=== PATIENT | female | born 1950 | race Caucasian/White ===

== ENCOUNTER 2017-07-02 18:28 | Emergency (ER) | payer OTHER ==
[~2017-07-02] VITALS: Ht 160 cm; Wt 67.3 kg
[2017-07-02] MEDS ORDERED: CHOL2000 PO (18:56)
[2017-07-02] MEDS ORDERED: RHINOCORT (18:56)
[2017-07-02] MEDS ORDERED: LISI-167 PO (18:56)
[2017-07-02] MEDS ORDERED: EXENATIDE 10 MCG (18:56)
[2017-07-02] MEDS ORDERED: ALBUTEROL INHALER (18:56)
[2017-07-02] MEDS ORDERED: CALCIUM (18:56)
[2017-07-02] MEDS ORDERED: SIMV40TA3 PO (18:56)
[2017-07-02] MEDS ORDERED: LORA1TAB46 PO (18:56)
[2017-07-02] MEDS ORDERED: METF750T PO (18:56)
[2017-07-02] MEDS ORDERED: ASPI-515 PO (18:56)
[2017-07-02 19:05] LABS: BASOPHILS # (AUTO) 0.03 x10^3/uL (0-0.1); BASOPHILS % (AUTO) 0 % (0-1); EOSINOPHILS # (AUTO) 0.11 x10^3/uL (0-0.4); EOSINOPHILS % (AUTO) 1 % (1-7); HCT (SEDRATE) 43.8 % (34.6-47.8); LYMPHOCYTES # (AUTO) 1.87 x10^3/uL (1-3.4); LYMPHOCYTES % (AUTO) 22 % (22-44); MD NO; MEAN CORPUSCULAR HEMOGLOBIN 31.1 pg (27.0-34.8); MEAN CORPUSCULAR HGB CONC 34.1 g/dL (32.4-35.8); MEAN CORPUSCULAR VOLUME 91.2 fL (80-100); MEAN PLATELET VOLUME 9.8 fL (7.4-10.4); MONOCYTES # (AUTO) 0.67 x10^3/uL (0.2-0.8); MONOCYTES % (AUTO) 8 % (2-9); NEUTROPHILS # (AUTO) 5.71 x10^3/uL (1.8-6.8); NEUTROPHILS % (AUTO) 68 % (42-75); PLATELET COUNT 237 x10^3/uL (130-400); RED CELL DISTRIBUTION WIDTH 13.5 % (9.6-15.2)
[2017-07-02 19:12] LABS: ALBUMIN 3.8 g/dL (3.4-5.0); ANION GAP 9 mmol/L (5-15); CHLORIDE 102 mmol/L (98-107); CREATININE 0.97 mg/dL (0.55-1.02)
[2017-07-02] MEDS ORDERED: DIPHENHYDRAMINE 50 MG/ML, 1ML ONE (19:15)
[2017-07-02] MEDS ORDERED: FAMOTIDINE 20 MG TABLET ONE (19:15)
[2017-07-02] MEDS ORDERED: DIPHENHYDRAMINE 50 MG/ML, 1ML IM ONE (19:30)
[2017-07-02] MEDS ORDERED: FAMOTIDINE 20 MG TABLET PO ONE (19:30)
[2017-07-02 19:44] LABS: SEDIMENTATION RATE 47 mm/hr (0-20)
[2017-07-02 20:35] VITALS: BP 135/68
== END 2017-07-02 21:01 | disposition home or self-care (01) ==
LOC: ED 20:15
DX: L03.113 Cellulitis of right upper limb (principal); L50.9 Urticaria, unspecified; L50.8 Other urticaria; E11.9 Type 2 diabetes mellitus without complications; E78.00 Pure hypercholesterolemia, unspecified; I10 Essential (primary) hypertension
CPT/HCPCS: 36415; 73090; 73140; 80048; 82040; 85025; 85651; 86140; 96372; 99285; J1200

== ENCOUNTER → 2020-03-16 | Outpatient (CLI) | payer OTHER ==
[~2020-03-16] MED LIST: ALBUTEROL INHALER; ASPI-963 PO; CALCIUM; CHOL2000 PO; EXENATIDE 10 MCG; LISI-167 PO; LORA1TAB46 PO; METF750T PO; OMNIPAQUE 350 MG/ML, 100ML BOTTLE ONE; RHINOCORT; SIMV40TA20 PO
== END | disposition home or self-care (01) ==
LOC: CFH 11:37
PROVIDERS: ATTEND Family Medicine
DX: R10.32 Left lower quadrant pain (principal)
CPT/HCPCS: 74177; Q9967